=== PATIENT | female | born 1970 | race Caucasian/White ===

== ENCOUNTER 2018-08-01 06:31 | Day surgery (SDC) | payer OTHER ==
[2018-07-31 14:58] VITALS: BP 108/77
[~2018-08-01] VITALS: Ht 175.3 cm; Wt 66.4 kg
[~2018-08-01 06:31] MED LIST: GLAT40SY SC; METO25TA35 PO; NATA300V2 INJ
[2018-08-01] MEDS ORDERED: SODIUM CHLORIDE 0.9% 1,000 ML IV SCH (06:39)
[2018-08-01] MEDS ORDERED: LIDOCAINE 1%, 20ML ONE ×2 (06:49→07:44)
[2018-08-01] MEDS ORDERED: MIDAZOLAM 1 MG/ML, 5ML ONE (07:43)
[2018-08-01] MEDS ORDERED: FENTANYL PF 100 MCG/2ML ONE (07:43)
[2018-08-01] MEDS ORDERED: ADENOSINE 6 MG/2 ML ONE (07:43)
[2018-08-01] MEDS ORDERED: ISOPROTERENOL 0.2MG/ML, 5ML ONE (07:44)
[2018-08-01] MEDS ORDERED: ACETAMINOPHEN 325 MG TABLET PO PRN (10:30)
[2018-08-01] MEDS ORDERED: NATALIZUMAB INJ SCH (10:30)
== END 2018-08-01 14:50 | disposition home or self-care (01) ==
LOC: CACL 06:31
PROVIDERS: ATTEND Internal Medicine Cardiovascular Disease
DX: I47.1 Supraventricular tachycardia (principal)
CPT/HCPCS: 36415; 71046; 80053; 85025; 93613; 93621; 93623; 93653; 99156; 99157; C1730; C1766; C1894; C2630; J2250; J3010; J0153